=== PATIENT | male | born 1970 | race American Indian/Alaskan Native ===

== ENCOUNTER 2022-02-27 20:52 | Emergency (ER) | payer BC ==
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
--- NOTE | 2022-02-28 09:39 | Cat Scan Report ---
CT head/brain wo con INDICATION: dizzy. TECHNIQUE: Routine CT head. All CT scans at this location are performed using CT dose reduction for A VERONICA by means of automated exposure control. COMPARISON: None. FINDINGS: Intracranial: Melendez-white matter differentiation is maintained. No intracranial hemorrhage. No extra a xial collection. No hydrocephalus. No herniation. Sinuses: Moderate opacification right mastoid air cells with preservation of the osseous septa. Small mucosal retention cyst in the right maxillary sinus, common benign generally asymptomatic finding.. Orbits: Globes are intact. Calvarium: No acute fracture. IMPRESSION: 1. No significant intracranial abnormality. 2. Age-indeterminate moderate right mastoid effusion without coalescence. Can correlate for mastoidit is. Signer Name: Forrest Garces MD Signed: 02/28/2022 9:34 AM Workstation Name: [email or web address]
[2022-02-28 10:04] LABS: Hematocrit 40.4 % (35.5-45.6); Mean Corpuscular HGB Conc 32 % (32-34); Mean Corpuscular Volume 82 fl (84-94); Platelet Count 296 K/mm3 (140-440); Red Blood Count 4.95 M/mm3 (3.65-5.03); Red Cell Distribution Width 15.3 % (13.2-15.2)
[2022-02-28 10:30] LABS: Alanine Aminotransferase 17 units/L (7-56); Albumin 4.1 g/dL (3.9-5); BUN/Creatinine Ratio 15; Blood Urea Nitrogen 24 mg/dL (9-20); Calcium 9.1 mg/dL (8.4-10.2); Hemolysis Index 5
[2022-02-28] MEDS ORDERED: SODIUM CHLORIDE 0.9% 1000 ML 1,000 ML IV ONE ×2 (10:33→14:33)
[2022-02-28] MEDS ORDERED: POTASSIUM CHLORIDE ER 20 MEQ TAB PO ONE ×2 (10:34→14:33)
[2022-02-28 14:37] LABS: Blood Urea Nitrogen TNR mg/dL (9-20)
[2022-02-28 14:38] LABS: BUN/Creatinine Ratio TNR; Calcium TNR mg/dL (8.4-10.2); Hemolysis Index TNR
[2022-02-28 15:20] LABS: BUN/Creatinine Ratio 17; Blood Urea Nitrogen 22 mg/dL (9-20); Calcium 8.8 mg/dL (8.4-10.2); Hemolysis Index 9
[2022-02-28 18:03] VITALS: BP 149/60
--- NOTE | 2022-03-01 18:27 | Electrocardiograph Report ---
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
== END 2022-02-28 18:02 | disposition home or self-care (01) ==
LOC: ED 20:52
DX: M79.18 Myalgia, other site (principal); N17.8 Other acute kidney failure; E87.6 Hypokalemia; R42 Dizziness and giddiness; V89.2XXA Person injured in unspecified motor-vehicle accident, traffic, initial encounter; Y93.89 Activity, other specified; Y92.89 Other specified places as the place of occurrence of the external cause; Y99.8 Other external cause status
CPT/HCPCS: 36415; 70450; 80048; 80053; 84484; 85027; 93005; 96360; 96361; 99284; J7030